=== PATIENT | female | born 1975 | race Hispanic/Latino ===

== ENCOUNTER 2019-03-17 14:41 | Outpatient (CLI) | payer OTHER ==
--- NOTE | 2019-03-17 16:00 | ULT ---
TRANSABDOMINAL PELVIC ULTRASOUND DATE:: 03/17/2019 12:00 AM CLINICAL HISTORY: Heavy menstrual period. COMPARISON: None. TECHNIQUE: Grayscale, color Doppler and spectral Doppler images were obtained of the pelvis see a tra nsabdominal approach Uterus: Size: 7.4 x 4.5 x 4.5 Mass: None Cervix: Within normal limits Endometrium: No abnormality Endometrial Thickness: 6 4.6 mm Ovaries: Size: right measures 4.5 x 3.1 x 3.2 cm; left measures 3.7 x 4.0 x 2 cm Mass: There is a 2.3 cm hypoechoic oval lesion without internal Doppler flow suspicious for follicula r cyst. No suspicious abnormalities seen within the left adnexa. Flow: Normal Cul-de-sac: Minimal free fluid IMPRESSION: Suspected right ovarian follicular cyst. Recommend a follow-up pelvic ultrasound in 6-8 weeks to document resolution.
== END 2019-03-17 14:42 | disposition home or self-care (01) ==
LOC: BICULT 14:41
PROVIDERS: ATTEND Family Medicine
DX: N92.1 Excessive and frequent menstruation with irregular cycle (principal); R10.2 Pelvic and perineal pain; N83.01 Follicular cyst of right ovary
CPT/HCPCS: 76856